=== PATIENT | female | born 2000 | race Caucasian/White ===

== ENCOUNTER 2018-04-10 01:20 | Emergency (ER) | payer BC, OTHER ==
[~2018-04-10] VITALS: Ht 165.1 cm; Wt 56.7 kg
[2018-04-10] MEDS ORDERED: MONO-LINYAH 28 TABLET (01:33)
[2018-04-10] MEDS ORDERED: MINOCYCLINE 100 MG CAPSULE (01:33)
[2018-04-10] MEDS ORDERED: AMOXICILLIN TRIHYDRATE 250 MG CAPSULE ONE (01:51)
[2018-04-10] MEDS ORDERED: IBUPROFEN 600 MG TABLET ONE (01:51)
[2018-04-10] MEDS ORDERED: ACETAMINOPHEN 650 MG/20.3 ML LIQUID UDC ONE (01:51)
--- NOTE | 2018-04-10 01:57 | NUR ---
Patient discharged to home in stable conditon. Written and verbal after care instructions given. Patient verbalizes understanding of instructions. Pt ambulated out of ER in steady gait with mother. All belongings with pt. VSS. NAD noted.
[2018-04-10 01:58] VITALS: BP 111/86
[2018-04-10] MEDS ORDERED: ACETAMINOPHEN 650 MG/20.3 ML LIQUID UDC PO ONE (02:00)
[2018-04-10] MEDS ORDERED: IBUPROFEN 600 MG TABLET PO ONE (02:00)
[2018-04-10] MEDS ORDERED: AMOXICILLIN TRIHYDRATE 250 MG CAPSULE PO ONE (02:00)
== END 2018-04-10 01:59 | disposition home or self-care (01) ==
LOC: ER 01:29
DX: J03.90 Acute tonsillitis, unspecified (principal)
CPT/HCPCS: A4663

== ENCOUNTER 2021-03-13 17:14 | Emergency (ER) | payer BC, OTHER ==
[~2021-03-13] VITALS: Ht 160 cm; Wt 52.2 kg
[~2021-03-13 17:14] MED LIST: MINOCYCLINE 100 MG CAPSULE; MONO-LINYAH 28 TABLET
[2021-03-13] MEDS ORDERED: ACETAMINOPHEN 325 MG TABLET PO ONE (17:45)
[2021-03-13] MEDS ORDERED: IBUPROFEN 400 MG TABLET PO ONE (17:45)
[2021-03-13] MEDS ORDERED: ACETAMINOPHEN 325 MG TABLET ONE (18:41)
[2021-03-13] MEDS ORDERED: IBUPROFEN 400 MG TABLET ONE (18:41)
[2021-03-13 18:53] LABS: *URINE HCG, QUAL NEGATIVE (NEGATIVE)
--- NOTE | 2021-03-13 19:09 | NUR ---
Recieved report from MAK Sanches.
[2021-03-13] MEDS ORDERED: IBUP-1953 PO (19:59)
--- NOTE | 2021-03-13 20:30 | NUR ---
Patient discharged to home in stable condition. Written and verbal after care instructions given. Patient verbalizes understanding of instructions. Stressed follow up or return to ER for worsening s/s. Pt. walks with steady gait. All belongings taken.
[2021-03-13 20:48] VITALS: BP 119/80
== END 2021-03-13 20:30 | disposition home or self-care (01) ==
LOC: ER 17:22
DX: S39.92XA Unspecified injury of lower back, initial encounter (principal); M54.5 Low back pain; W01.0XXA Fall on same level from slipping, tripping and stumbling without subsequent striking against object, initial encounter; Y92.89 Other specified places as the place of occurrence of the external cause
CPT/HCPCS: 72220; 84703; A4663

== ENCOUNTER 2023-09-16 08:42 | Day surgery (SDC) | payer BC, OTHER ==
[~2023-09-16 08:42] MED LIST changes: +IBUP-1953 PO
[2023-09-16] MEDS ORDERED: CEFAZOLIN 50 ML IV ONE (09:01)
[2023-09-16 09:32] LABS: CALCIUM 9.3 mg/dL (8.5-10.1); CREATININE 0.7 mg/dL (0.6-1.3); POTASSIUM 3.9 mmol/L (3.5-5.1)
[2023-09-16] MEDS ORDERED: MIDAZOLAM HCL 2 MG/2 ML VIAL ONE (09:35)
[2023-09-16] MEDS ORDERED: FENTANYL CITRATE 100 MCG/2 ML AMPUL ONE (09:35)
[2023-09-16 09:38] LABS: ALBUMIN 3.8 g/dL (3.4-5.0); BILIRUBIN,TOTAL 0.3 mg/dL (0.2-1.0); TOTAL PROTEIN, SERUM 7.4 g/dL (6.4-8.2)
[2023-09-16 09:39] LABS: *BILIRUBIN,URIN NEGATIVE (NEGATIVE); *BLOOD, URINE NEGATIVE (NEGATIVE); *CLARITY,URINE CLEAR (CLEAR); *COLOR,URINE YELLOW (YELLOW); *KETONES,URINE NEGATIVE (NEGATIVE); *PROTEIN,URINE NEGATIVE (NEGATIVE); *UROBILINOGEN,URINE 0.2 E.U./dl (NORMAL); LEUKOCYTE ESTERASE ,URINE NEGATIVE (NEGATIVE); NITRITE, URINE NEGATIVE (NEGATIVE); UGLUCOSE NEGATIVE (NEGATIVE)
[2023-09-16 09:40] LABS: *URINE HCG, QUAL NEGATIVE (NEGATIVE)
[2023-09-16] MEDS ORDERED: PHENYLEPHRINE 1% (EXTRA STR) NASAL SPRAY NS ONE (09:40)
[2023-09-16] MEDS ORDERED: BACITRACIN ZINC OINT 15 GM TUBE ONE (09:41)
[2023-09-16] MEDS ORDERED: LIDOCAINE 1%-EPI 1:100,000 20 ML VIAL ONE (09:41)
[2023-09-16] MEDS ORDERED: CEFAZOLIN 1 G VIAL ONE (12:20)
[2023-09-16] MEDS ORDERED: ONDANSETRON 4 MG/2 ML VIAL ONE (12:20)
[2023-09-16] MEDS ORDERED: DEXAMETHASONE SOD PHOSPHATE 4 MG INJ ONE (12:20)
[2023-09-16] MEDS ORDERED: PROPOFOL 200 MG/20 ML BOTTLE ONE (12:20)
[2023-09-16] MEDS ORDERED: BENZOCAINE/MENTH/CETYLPYRD LOZENGE MM ONE (12:54)
[2023-09-16 14:25] VITALS: TEMP 98.1
== END 2023-09-16 14:35 | disposition home or self-care (01) ==
LOC: DS 08:42
PROVIDERS: ATTEND Otolaryngology
DX: J34.2 Deviated nasal septum (principal); J34.3 Hypertrophy of nasal turbinates; F41.9 Anxiety disorder, unspecified; Z79.899 Other long term (current) drug therapy; Z98.890 Other specified postprocedural states
CPT/HCPCS: 30420; 30140; 80053; 81003; 84703; 36415; J0690 ×2; J1100; J3490; J2250; J2405; J3010; J7120; A4663